=== PATIENT | female | born 1950 | race African-American/Black ===

== ENCOUNTER 2023-08-18 19:39 | Emergency (ER) | payer BC ==
[~2023-08-18] VITALS: Ht 167.6 cm; Wt 82.0 kg
[2023-08-18 19:59] VITALS: BP 146/79; O2SAT 98
[2023-08-19 03:02] VITALS: PULSE 82; RESP 16; TEMP 98.7
== END 2023-08-19 03:03 | disposition home or self-care (01) ==
LOC: ER 19:39
DX: S09.90XA Unspecified injury of head, initial encounter (principal); Z90.49 Acquired absence of other specified parts of digestive tract; Z98.890 Other specified postprocedural states; W22.8XXA Striking against or struck by other objects, initial encounter; Y93.89 Activity, other specified; Y92.89 Other specified places as the place of occurrence of the external cause; Y99.8 Other external cause status
CPT/HCPCS: 99284